=== PATIENT | female | born 1985 | race Two or more races ===

== ENCOUNTER 2016-11-13 16:21 | Emergency (ER) | payer SELFPAY ==
[2016-11-13] MEDS ORDERED: OXYMETAZOLINE HCL 0.05% 30 SPRAYS/BOT NS ONE (16:56)
[2016-11-13] MEDS ORDERED: ALBUTEROL NEB 2.5 MG/3 ML VIAL.NEB NEB ONE (16:56)
[2016-11-13] MEDS ORDERED: ACETAMINOPHEN 500 MG TABLET ONE (16:56)
--- NOTE | 2016-11-13 18:09 | RAD ---
CHEST - 2 VIEWS COMPARISON: Chest 2 views, 11/03/2010 HISTORY: Tightness in chest. Pneumonia diagnosed 2 weeks ago. FINDINGS: Views: Frontal and lateral chest Lungs: Normal Heart and vessels: Normal Trachea and bronchi: Normal Mediastinum and jennifer: Normal Costophrenic sulci: Normal Chest wall and bones: Normal. Upper abdomen: Normal. IMPRESSION: Negative 2 view chest.
== END 2016-11-13 17:53 | disposition home or self-care (01) ==
LOC: ED 16:21
DX: R05 Cough (principal); R06.2 Wheezing
CPT/HCPCS: 71020; 94640; 94664; 99283 ×2; A9270 ×2